=== PATIENT | male | born 1985 | race Caucasian/White ===

== ENCOUNTER 2018-09-07 07:55 | Emergency (ER) | payer SELFPAY ==
[2018-09-07 08:01] VITALS: BP 116/75; PULSE 95; TEMP 98; BMI 28.7
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
== END 2018-09-07 09:09 | disposition home or self-care (01) ==
LOC: JERFT 07:55
PROC: 2W3KX1Z Immobilization of Left Finger using Splint (ICD-10-PCS; principal; 2018-09-07)
DX: S63.287A Dislocation of proximal interphalangeal joint of left little finger, initial encounter (principal); Y04.2XXA Assault by strike against or bumped into by another person, initial encounter; Y93.89 Activity, other specified; Y92.89 Other specified places as the place of occurrence of the external cause; Y99.8 Other external cause status; F10.10 Alcohol abuse, uncomplicated; Y90.9 Presence of alcohol in blood, level not specified
CPT/HCPCS: 73140-TC-LT-FY; 99281-25